=== PATIENT | female | born 1925 | race Caucasian/White ===

== ENCOUNTER 2017-07-11 16:46 | Emergency (ER) | payer OTHER ==
[~2017-07-11] VITALS: Ht 152.4 cm; Wt 59.0 kg
[~2017-07-11 16:46] MED LIST: ALAVERT10 M1 PO; ALAVERT10 MG PO; APAP650 PO; ASPIR 8181 MG PO; ASPIRIN EC81 M1 PO; CLARITIN10 MG PO; COLACE100 MG PO; DAPSONE25 MG PO; DOCUSATE SODIU100 MG PO; DOXYCYCLINE HYC50 M2 PO; GABAPENTIN100 MG PO; IRON325 PO; LISINOPRIL-HCT1 EAC1 PO; LISINOPRIL40 MG PO; MOBIC15 MG PO; MULTIVITAMINS1 EAC7 PO; OMEPRAZOLE40 MG PO; OS-CAL 500+D C1 EACH PO; OXYMORPHONE HCL10 M1 PO; PRILOSEC 20 MG20 MG PO; PROTONIX40 M2 PO; RECLAST 55 MG/100 M IV; SENNA LAXATIVE25 MG PO; SIMVASTATIN20 MG PO; TOPROL XL25 MG PO; TRAMADOL 50 MG50 MG PO; TRICOR145 MG PO; VITAMIN D1000 UNI1 PO; VITAMINC500 PO; ZOCOR80 MG PO
[2017-07-11] MEDS ORDERED: FLAGYL500 MG PO (17:08)
[2017-07-11] MEDS ORDERED: FELODIPINE 5 MG5 M1 PO (17:09)
[2017-07-11] MEDS ORDERED: PROLIA60 MG/1 ML SUBQ (17:11)
== END 2017-07-11 18:34 | disposition home or self-care (01) ==
LOC: ER 16:46
DX: S01.01XA Laceration without foreign body of scalp, initial encounter (principal); Z90.710 Acquired absence of both cervix and uterus; Z98.890 Other specified postprocedural states; Z91.041 Radiographic dye allergy status; Z88.0 Allergy status to penicillin; Z88.2 Allergy status to sulfonamides; Z91.013 Allergy to seafood; Z87.891 Personal history of nicotine dependence; W19.XXXA Unspecified fall, initial encounter; Y93.89 Activity, other specified; Y92.513 Shop (commercial) as the place of occurrence of the external cause; Y99.8 Other external cause status